=== PATIENT | female | born 1975 | race Caucasian/White ===

== ENCOUNTER 2022-02-27 12:00 | Inpatient (IN) ==
[2022-02-27] MEDS ORDERED: MOM Conc 10 ML UD.LIQ PO PRN (14:48)
[2022-02-27] MEDS ORDERED: Naloxone 0.4 MG/ML INJ IVP PRN (14:48)
[2022-02-27] MEDS ORDERED: Ondansetron 4 MG/2 ML VIAL IVP PRN (14:48)
[2022-02-27] MEDS ORDERED: Melatonin 3 MG TABLET PO PRN (14:48)
[2022-02-27] MEDS ORDERED: Ipratropium Neb 0.5 MG NEBULIZER IH PRN (14:51)
[2022-02-27] MEDS ORDERED: MethylPREDNISolone 40 MG/ML VIAL IVP SCH (15:00)
[2022-02-27] MEDS: Ipratropium/Albuterol Neb 3 ML IH SCH ×2 (15:15→22:11)
[2022-02-27] MEDS ORDERED: Ringers Solution, Lactated 1,000 ML IVC SCH (15:15)
[2022-02-27 15:56] LABS: Basophils % 0.2 %; Hematocrit 40.6 % (35.3-44.9); Hemoglobin 12.9 g/dL (11.5-15.4); Immature Granulocytes % 0.5 % (0-4); Lymphocytes # 0.6 K/mcL (0.6-4.6); Lymphocytes % 5.2 %; Mean Corpuscular HGB Conc 31.8 g/dL (31.6-35.5); Mean Corpuscular Hemoglobin 32.5 pg (28.0-33.3); Mean Corpuscular Volume 102.3 fL (83.0-100.0); Mean Platelet Volume 10.5 fL (9.4-12.4); Monocytes # 0.3 K/mcL (0.0-1.3); Monocytes % 2.9 %; Neutrophils # 9.8 K/mcL (1.6-8.9); Platelet Count 194 K/mcL (140-400); Red Blood Count 3.97 M/mcL (3.82-4.97); Red Cell Distribution Width 13.2 % (11.5-14.5); Segmented Neutrophils % 91.2 %; White Blood Count 10.7 K/mcL (4.3-11.1)
[2022-02-27 16:02] LABS: VBG HCO3 34 mEq/L (21-27); VBG PCO2 56 mmHg (41-51); VBG PO2 118 mmHg (25-50)
[2022-02-27] MEDS: MethylPREDNISolone 40 MG/ML VIAL IVP SCH (16:02)
[2022-02-27 16:17] LABS: BUN/Creatinine Ratio 33 (6-26); Blood Urea Nitrogen 17 mg/dL (6-20); Calcium 9.9 mg/dL (8.6-10.3); Carbon Dioxide 36 mEq/L (23-29); Chloride 102 mEq/L (98-107); Glucose 137 mg/dL (70-105); Osmolality,Calculated 298 (280-300); Potassium 4.6 mEq/L (3.5-5.1); Sodium 142 mEq/L (136-145)
[2022-02-27 16:30] LABS: Thyroid Stimulating Hormone 0.167 mcIU/mL (0.340-5.600)
[2022-02-27] MEDS: Doxycycline 100 MG in 0.9 % Sodium Chloride Mini Bag 100 ML IVPB SCH (17:16)
[2022-02-27 17:20] LABS: Adenovirus Not Detected (Not Detect); Bordetella Pertussis Not Detected (Not Detect); Chlamydophila pneumoniae Not Detected (Not Detect); Coronavirus 229E Not Detected (Not Detect); Coronavirus HKU1 Not Detected (Not Detect); Coronavirus NL63 Not Detected (Not Detect); Coronavirus OC43 Not Detected (Not Detect); Human Metapneumovirus Not Detected (Not Detect); Human Rhinovirus/Enterovirus Not Detected (Not Detect); Influenza A Subtype 2009 H1 Not Detected (Not Detect); Influenza B Not Detected (Not Detect); Mycoplasma pneumoniae Not Detected (Not Detect); Parainfluenza Virus 1 Not Detected (Not Detect); Parainfluenza Virus 2 Not Detected (Not Detect); Parainfluenza Virus 3 Not Detected (Not Detect); Parainfluenza Virus 4 Not Detected (Not Detect); Respiratory Syncytial Virus Not Detected (Not Detect); SARS-CoV-2 Not Detected (Not Detect)
[2022-02-27] MEDS: Budesonide/Formoterol 160/4.5 1 PUFF INH IH SCH (22:11)
[2022-02-27] MEDS: hydrOXYzine pamoate 25 MG CAPSULE PO PRN (22:47)
[2022-02-28] MEDS: MethylPREDNISolone 40 MG/ML VIAL IVP SCH ×2 (02:49→16:12)
[2022-02-28] MEDS: Ipratropium/Albuterol Neb 3 ML IH SCH ×4 (03:44→22:34)
[2022-02-28 05:48] LABS: Basophils % 0.2 %; Hematocrit 37.6 % (35.3-44.9); Hemoglobin 11.6 g/dL (11.5-15.4); Immature Granulocytes % 0.3 % (0-4); Lymphocytes # 0.6 K/mcL (0.6-4.6); Lymphocytes % 4.9 %; Mean Corpuscular HGB Conc 30.9 g/dL (31.6-35.5); Mean Corpuscular Hemoglobin 32.2 pg (28.0-33.3); Mean Corpuscular Volume 104.4 fL (83.0-100.0); Mean Platelet Volume 10.5 fL (9.4-12.4); Monocytes # 0.5 K/mcL (0.0-1.3); Monocytes % 3.9 %; Neutrophils # 10.6 K/mcL (1.6-8.9); Platelet Count 163 K/mcL (140-400); Red Cell Distribution Width 13.5 % (11.5-14.5); Segmented Neutrophils % 90.7 %; White Blood Count 11.7 K/mcL (4.3-11.1)
[2022-02-28] MEDS: Doxycycline 100 MG in 0.9 % Sodium Chloride Mini Bag 100 ML IVPB SCH ×2 (05:57→17:52)
[2022-02-28 06:04] LABS: BUN/Creatinine Ratio 36 (6-26); Blood Urea Nitrogen 14 mg/dL (6-20); Calcium 9.3 mg/dL (8.6-10.3); Carbon Dioxide 35 mEq/L (23-29); Chloride 103 mEq/L (98-107); Glucose 118 mg/dL (70-105); Osmolality,Calculated 294 (280-300); Potassium 4.4 mEq/L (3.5-5.1); Sodium 141 mEq/L (136-145)
[2022-02-28] MEDS: Acetaminophen 325 MG TABLET PO PRN ×2 (06:05→14:03)
[2022-02-28 06:22] LABS: Triiodothyronine (T3) Free 2.62 pg/mL (2.50-3.90)
[2022-02-28] MEDS: Metoprolol XL (24 HR) Succ 25 MG TAB.ER.24H PO SCH (09:18)
[2022-02-28] MEDS: Aspirin 81 MG TAB.CHEW PO SCH (09:18)
[2022-02-28] MEDS: Budesonide/Formoterol 160/4.5 1 PUFF INH IH SCH ×2 (09:57→22:35)
[2022-02-28] MEDS: Simethicone 80 MG TAB.CHEW PO PRN (21:00)
[2022-02-28] MEDS: hydrOXYzine pamoate 25 MG CAPSULE PO PRN (22:47)
[2022-03-01 03:19] LABS: Basophils % 0.2 %; Eosinophils % 0.1 %; Hematocrit 37.5 % (35.3-44.9); Hemoglobin 11.7 g/dL (11.5-15.4); Immature Granulocytes % 0.4 % (0-4); Lymphocytes # 0.8 K/mcL (0.6-4.6); Lymphocytes % 5.9 %; Mean Corpuscular HGB Conc 31.2 g/dL (31.6-35.5); Mean Corpuscular Hemoglobin 32.3 pg (28.0-33.3); Mean Corpuscular Volume 103.6 fL (83.0-100.0); Mean Platelet Volume 10.7 fL (9.4-12.4); Monocytes # 1.1 K/mcL (0.0-1.3); Monocytes % 8.6 %; Neutrophils # 10.7 K/mcL (1.6-8.9); Platelet Count 168 K/mcL (140-400); Red Blood Count 3.62 M/mcL (3.82-4.97); Red Cell Distribution Width 13.8 % (11.5-14.5); Segmented Neutrophils % 84.8 %; White Blood Count 12.6 K/mcL (4.3-11.1)
[2022-03-01 03:29] LABS: VBG HCO3 34 mEq/L (21-27); VBG PCO2 57 mmHg (41-51); VBG PH 7.38 pH Units (7.32-7.42); VBG PO2 99 mmHg (25-50)
[2022-03-01 03:48] LABS: BUN/Creatinine Ratio 29 (6-26); Blood Urea Nitrogen 14 mg/dL (6-20); Carbon Dioxide 35 mEq/L (23-29); Chloride 100 mEq/L (98-107); Glucose 131 mg/dL (70-105); Magnesium 1.8 mg/dL (1.6-2.6); Osmolality,Calculated 290 (280-300); Potassium 4.5 mEq/L (3.5-5.1); Sodium 139 mEq/L (136-145)
[2022-03-01] MEDS: Ipratropium/Albuterol Neb 3 ML IH SCH ×4 (04:07→22:53)
[2022-03-01] MEDS: MethylPREDNISolone 40 MG/ML VIAL IVP SCH ×2 (04:40→17:02)
[2022-03-01] MEDS: Doxycycline 100 MG in 0.9 % Sodium Chloride Mini Bag 100 ML IVPB SCH ×2 (06:28→17:02)
[2022-03-01] MEDS: Aspirin 81 MG TAB.CHEW PO SCH (09:39)
[2022-03-01] MEDS: Budesonide/Formoterol 160/4.5 1 PUFF INH IH SCH ×2 (09:41→22:53)
[2022-03-01] MEDS: Metoprolol XL (24 HR) Succ 25 MG TAB.ER.24H PO SCH (09:45)
[2022-03-01] MEDS: hydrOXYzine pamoate 25 MG CAPSULE PO PRN (22:47)
[2022-03-02 02:50] LABS: Basophils % 0.1 %; Hemoglobin 11.5 g/dL (11.5-15.4); Immature Granulocytes % 0.6 % (0-4); Lymphocytes # 0.8 K/mcL (0.6-4.6); Lymphocytes % 7.3 %; Mean Corpuscular HGB Conc 31.1 g/dL (31.6-35.5); Mean Corpuscular Hemoglobin 31.8 pg (28.0-33.3); Mean Corpuscular Volume 102.2 fL (83.0-100.0); Mean Platelet Volume 10.8 fL (9.4-12.4); Monocytes # 0.9 K/mcL (0.0-1.3); Monocytes % 8.1 %; Neutrophils # 9.2 K/mcL (1.6-8.9); Platelet Count 173 K/mcL (140-400); Red Blood Count 3.62 M/mcL (3.82-4.97); Red Cell Distribution Width 13.7 % (11.5-14.5); Segmented Neutrophils % 83.9 %
[2022-03-02 03:04] LABS: BUN/Creatinine Ratio 36 (6-26); Blood Urea Nitrogen 15 mg/dL (6-20); Calcium 9.2 mg/dL (8.6-10.3); Carbon Dioxide 39 mEq/L (23-29); Chloride 98 mEq/L (98-107); Glucose 112 mg/dL (70-105); Magnesium 1.9 mg/dL (1.6-2.6); Osmolality,Calculated 290 (280-300); Potassium 4.4 mEq/L (3.5-5.1); Sodium 139 mEq/L (136-145)
[2022-03-02] MEDS: Ipratropium/Albuterol Neb 3 ML IH SCH ×4 (04:46→21:40)
[2022-03-02] MEDS: MethylPREDNISolone 40 MG/ML VIAL IVP SCH ×2 (05:17→17:46)
[2022-03-02] MEDS: Doxycycline 100 MG in 0.9 % Sodium Chloride Mini Bag 100 ML IVPB SCH ×2 (05:17→17:46)
[2022-03-02] MEDS: Aspirin 81 MG TAB.CHEW PO SCH (09:28)
[2022-03-02] MEDS: Acetaminophen 325 MG TABLET PO PRN ×2 (09:28→18:55)
[2022-03-02] MEDS: Metoprolol XL (24 HR) Succ 25 MG TAB.ER.24H PO SCH (09:29)
[2022-03-02] MEDS: Budesonide/Formoterol 160/4.5 1 PUFF INH IH SCH ×2 (10:42→21:40)
[2022-03-02] MEDS: Simethicone 80 MG TAB.CHEW PO PRN (17:47)
[2022-03-02] MEDS: hydrOXYzine pamoate 25 MG CAPSULE PO PRN (22:54)
[2022-03-03] MEDS: Ipratropium/Albuterol Neb 3 ML IH SCH ×2 (04:12→10:00)
[2022-03-03] MEDS: Doxycycline 100 MG in 0.9 % Sodium Chloride Mini Bag 100 ML IVPB SCH (05:21)
[2022-03-03] MEDS: MethylPREDNISolone 40 MG/ML VIAL IVP SCH (05:22)
[2022-03-03 06:29] VITALS: BP 103/62; PULSE 100; TEMP 98.8
[2022-03-03] MEDS: Aspirin 81 MG TAB.CHEW PO SCH (09:22)
[2022-03-03] MEDS: Metoprolol XL (24 HR) Succ 25 MG TAB.ER.24H PO SCH (09:22)
[2022-03-03] MEDS: Budesonide/Formoterol 160/4.5 1 PUFF INH IH SCH (09:59)
[2022-03-03 10:04] VITALS: O2SAT 94
== END 2022-03-03 12:36 | disposition home health service (06) | DRG 140 ==
LOC: 2ANU → SUATTDRO 02-28 13:20
PROVIDERS: ADMIT Internal Medicine; ATTEND Family Medicine